=== PATIENT | female | born 1980 | race Caucasian/White ===

== ENCOUNTER 2023-06-13 12:26 | Outpatient (CLI) | payer OTHER, SELFPAY | END 2023-06-13 12:27 | disposition home or self-care (01) | PROVIDERS: PCP Obstetrics & Gynecology; Visit Provider Family Medicine | DX: R53.83 Other fatigue (principal); M79.605 Pain in left leg; I83.819 Varicose veins of unspecified lower extremity with pain | CPT/HCPCS: 80048; 82550; 84443; 85025; 85379 ==

== ENCOUNTER 2025-01-27 10:30 | Outpatient (CLI) | payer OTHER, SELFPAY | END 2025-01-27 10:31 | disposition home or self-care (01) | LOC: NFLDREF 01-30 10:25 | PROVIDERS: PCP Family Medicine; Referring Provider Family Medicine; Visit Provider Family Medicine | DX: R00.0 Tachycardia, unspecified (principal); F41.9 Anxiety disorder, unspecified | CPT/HCPCS: 80053; 84443 ==